=== PATIENT | female | born 1930 | race Hispanic/Latino ===

== ENCOUNTER 2017-07-23 01:10 | Emergency (ER) | payer MEDICARE, OTHER ==
[~2017-07-23] VITALS: Ht 152.4 cm; Wt 70.8 kg
[~2017-07-23 01:10] MED LIST: ASPIRIN EC81 MG PO; ATENOLOL50 MG PO; FUROSEMIDE40 MG PO; IBANDRONATE SO150 MG PO; ISOSORBIDE MONO30 MG PO; LEVAQUIN500 MG PO; METOCLOPRAMIDE10 MG PO; SULFAMETHOXAZO1 EAC1 PO; VASOTEC10 MG PO
[2017-07-23 01:29] LABS: BASOPHILS % 0.3 % (0.0-1.0); EOSINOPHILS # (AUTO) 0.1 (0.0-0.4); EOSINOPHILS % 0.5 % (0.0-6.0); HEMATOCRIT 36.6 % (34.2-44.1); HEMOGLOBIN 11.9 g/dL (12.0-16.0); LYMPHOCYTES # (AUTO) 1.9 (1.0-3.2); LYMPHOCYTES % 14.4 % (18.0-39.1); MEAN CORPUSCULAR HEMOGLOBIN 26.7 pg (28-32); MEAN CORPUSCULAR HGB CONC 32.5 g/dL (31-35); MEAN CORPUSCULAR VOLUME 82.1 fL (81-99); MONOCYTES # (AUTO) 1.3 (0.2-0.8); MONOCYTES % 9.8 % (4.4-11.3); NEUTROPHILS # (AUTO) 9.5 (2.1-6.9); NEUTROPHILS % 74.4 % (38.7-80.0); PLATELET COUNT 270 x10e3/uL (140-360); RED BLOOD COUNT 4.46 x10e6/uL (3.6-5.1); RED CELL DISTRIBUTION WIDTH 14.6 % (11.7-14.4)
[2017-07-23 01:32] LABS: CLARITY,URINE CLEAR (CLEAR); COLOR,URINE YELLOW (YELLOW); LEUKOCYTE ESTERASE ,URINE TRACE (NEGATIVE); NITRITE,URINE NEGATIVE (NEGATIVE)
[2017-07-23 01:33] LABS: BILIRUBIN,URINE NEGATIVE (NEGATIVE); KETONES,URINE NEGATIVE (NEGATIVE); PROTEIN,URINE DIPSTICK 1+ (NEGATIVE); URINE UROBILINOGEN 1 mg/dL (0.2 - 1)
[2017-07-23] MEDS ORDERED: ASPIRIN EC81 MG PO (01:36)
[2017-07-23] MEDS ORDERED: MONTELUKAST SOD10 MG PO (01:36)
[2017-07-23] MEDS ORDERED: EXELON1 EAC1 TD (01:36)
[2017-07-23] MEDS ORDERED: LEVOFLOXACIN250 MG PO (01:36)
[2017-07-23] MEDS ORDERED: IBUPROFEN400 MG PO (01:36)
[2017-07-23] MEDS ORDERED: ALBUTEROL0.63 MG/3 NEB (01:36)
[2017-07-23] MEDS ORDERED: VENTOLIN HFA18 GM INH (01:36)
[2017-07-23] MEDS ORDERED: CITALOPRAM HBR10 MG PO (01:36)
[2017-07-23 01:37] LABS: ALANINE AMINOTRANSFERASE 6 IU/L (0-55); ALBUMIN/GLOBULIN RATIO 0.8 (0.8-2.0); ALKALINE PHOSPHATASE 55 IU/L (40-150); ANION GAP 14.3 mmol/L (8-16); BLOOD UREA NITROGEN 14 mg/dL (7-26); BUN/CREATININE RATIO 20 (6-25); CALCIUM 9.4 mg/dL (8.4-10.2); CARBON DIOXIDE 25 mmol/L (22-29); CHLORIDE 103 mmol/L (98-107); CREATININE, SERUM 0.71 mg/dL (0.57-1.11); EST GLOMERULAR FILTRATION RATE > 60 ML/MIN (60-); GLUCOSE 107 mg/dL (74-118); POTASSIUM 3.3 mmol/L (3.5-5.1); SODIUM 139 mmol/L (136-145)
[2017-07-23 01:40] LABS: BACTERIA,URINE FEW /HPF; EPITHELIAL CELLS,URINE FEW /LPF; RBC,URINE >50 /HPF (0-5)
--- NOTE | 2017-07-23 02:14 | Diagnostic Imaging Report ---
EXAM: CHEST SINGLE (PORTABLE), AP 1 view INDICATION: Altered mental status COMPARISON: AP view of the chest November 05, 2016 FINDINGS: LINES/TUBES: None LUNGS: Progressive volume loss of the right lung. Once again there is scarring and a cavitary lesion in the right apex. Calcified granulomas left lung. PLEURA: No effusions or pneumothorax. HEART AND MEDIASTINUM: Stable appearance. BONES AND SOFT TISSUES: No acute findings. IMPRESSION: Progressive volume loss of the right lung and stable cavitary lesion in the right apex. Finding suggests sequela of prior infection. Signed by: Dr. Claudette Lind M.D. on 07/23/2017 2:10 AM
--- NOTE | 2017-07-23 02:46 | Diagnostic Imaging Report ---
EXAMINATION: Head CT without contrast. HISTORY:Altered mental status. COMPARISON:CT brain from 11/05/2016. TECHNIQUE: Multidetector axial images were obtained from the foramen magnum to the vertex without contrast. The images were reconstructed using brain and bone algorithms. Thin section brain images were reformatted into coronal and sagittal planes. Intravenous contrast: None IMAGE QUALITY: Acceptable. FINDINGS: Skull/scalp: No lytic or blastic. lesions. No surgical changes. Parenchyma: Unchanged old lacunar infarct in right lentiform nucleus and left lentiform nucleus that extends to the genu and anterior limb of left internal capsule. Nonspecific bilateral frontoparietal patchy white matter hypodensity are likely related to small vessel ischemic changes. Unchanged 1.2 x 0.8 cm dystrophic calcification in the anterior aspect of left cerebellar hemisphere, possibly a sequel of prior infection/inflammation or trauma. No surrounding edema. No acute hemorrhage, mass or acute major vascular territorial infarct. Arteries: Atherosclerotic calcification in bilateral carotid siphon. Dural sinuses: No abnormal density suggestive of thrombosis. Ventricles: No hydrocephalus or displacement. Extra-axial spaces: No abnormal density. Brain volume: Normal for age. Craniocervical junction: No mass, Chiari malformation, or basilar invagination. Sella: No mass. Paranasal/mastoid sinuses: Mild mucosal thickening with bubbly secretions in right sphenoid sinus. Opacification of the visualized portion of left maxillary sinus. IMPRESSION: No acute intracranial abnormality. No change since CT head from 11/05/2016. Chronic findings: 1. Mild supratentorial white matter microvascular ischemic changes. 2. Old lacunar infarct in bilateral lentiform nuclei. 3. Generalized age-related cerebral volume loss. 4. Dystrophic calcification in left cerebellar hemisphere possibly a sequel of prior infection/inflammation or trauma. Signed by: Dr. Malini Martinez M.D. on 07/23/2017 2:42 AM
== END 2017-07-23 03:10 | disposition home or self-care (01) ==
LOC: ER 01:10
DX: N30.01 Acute cystitis with hematuria (principal); F03.90 Unspecified dementia, unspecified severity, without behavioral disturbance, psychotic disturbance, mood disturbance, and anxiety; I10 Essential (primary) hypertension; M81.0 Age-related osteoporosis without current pathological fracture; M19.90 Unspecified osteoarthritis, unspecified site; Z82.49 Family history of ischemic heart disease and other diseases of the circulatory system; Z83.3 Family history of diabetes mellitus
CPT/HCPCS: 36415; 70450; 71045; 80053; 81001; 83605; 85025; 87040; 87086; 93005; 99284

== ENCOUNTER 2017-07-27 10:29 | Observation (INO) | payer MEDICARE, OTHER ==
[~2017-07-27] VITALS: Ht 152.4 cm; Wt 60.4 kg
[~2017-07-27 10:29] MED LIST changes: +ALBUTEROL0.63 MG/3 NEB; +CITALOPRAM HBR10 MG PO; +EXELON1 EAC1 TD; +IBUPROFEN400 MG PO; +LEVOFLOXACIN250 MG PO; +MONTELUKAST SOD10 MG PO; +VENTOLIN HFA18 GM INH
[2017-07-27 11:55] LABS: BASOPHILS % 0.3 % (0.0-1.0); EOSINOPHILS # (AUTO) 0.1 (0.0-0.4); EOSINOPHILS % 0.4 % (0.0-6.0); HEMATOCRIT 39.5 % (34.2-44.1); HEMOGLOBIN 12.8 g/dL (12.0-16.0); LYMPHOCYTES # (AUTO) 1.4 (1.0-3.2); LYMPHOCYTES % 12.5 % (18.0-39.1); MEAN CORPUSCULAR HEMOGLOBIN 26.9 pg (28-32); MEAN CORPUSCULAR HGB CONC 32.4 g/dL (31-35); MEAN CORPUSCULAR VOLUME 83.2 fL (81-99); MONOCYTES # (AUTO) 1.1 (0.2-0.8); MONOCYTES % 9.5 % (4.4-11.3); NEUTROPHILS # (AUTO) 8.6 (2.1-6.9); PLATELET COUNT 366 x10e3/uL (140-360); RED BLOOD COUNT 4.75 x10e6/uL (3.6-5.1); RED CELL DISTRIBUTION WIDTH 14.7 % (11.7-14.4)
[2017-07-27 12:07] LABS: ALANINE AMINOTRANSFERASE 8 IU/L (0-55); ALBUMIN 3.3 g/dL (3.5-5.0); ALBUMIN/GLOBULIN RATIO 0.8 (0.8-2.0); ALKALINE PHOSPHATASE 63 IU/L (40-150); ANION GAP 14.2 mmol/L (8-16); BLOOD UREA NITROGEN 14 mg/dL (7-26); BUN/CREATININE RATIO 19 (6-25); CALCIUM 10.2 mg/dL (8.4-10.2); CARBON DIOXIDE 29 mmol/L (22-29); CHLORIDE 104 mmol/L (98-107); CREATINE KINASE 28 IU/L (29-168); CREATININE, SERUM 0.75 mg/dL (0.57-1.11); EST GLOMERULAR FILTRATION RATE > 60 ML/MIN (60-); GLUCOSE 127 mg/dL (74-118); POTASSIUM 3.2 mmol/L (3.5-5.1); SODIUM 144 mmol/L (136-145)
--- NOTE | 2017-07-27 12:15 | Diagnostic Imaging Report ---
PROCEDURE: Frontal and lateral views of the chest. COMPARISON: Chest radiograph 07/23/2017, chest CT 11/06/2016 INDICATIONS: COUGH FINDINGS: LUNGS: Stable appearance of the right lung from 07/23/2017 when allowing for differences in technique. Chronic scarring and cavitation in the right lung apex. Calcified granulomas are noted in the left lung. PLEURA: Pleural scarring. No effusions or pneumothorax. HEART AND MEDIASTINUM: Stable appearance. BONES AND SOFT TISSUES: No acute findings. IMPRESSION: 1. Stable exam from 07/23/2017 when allowing for differences in radiographic technique. 2. Chronic scarring and cavitation in the right lung apex, most likely sequela of tuberculosis. 1. Dictated by: Jordan Beck M.D. on 07/27/2017 at 12:18 Electronically approved by: Jordan Beck M.D. on 07/27/2017 at 12:18
[2017-07-27 13:15] LABS: CLARITY,URINE SL CLOUDY (CLEAR); COLOR,URINE YELLOW (YELLOW)
[2017-07-27 13:16] LABS: BILIRUBIN,URINE NEGATIVE (NEGATIVE); KETONES,URINE NEGATIVE (NEGATIVE); LEUKOCYTE ESTERASE ,URINE NEGATIVE (NEGATIVE); NITRITE,URINE NEGATIVE (NEGATIVE); PROTEIN,URINE DIPSTICK NEGATIVE (NEGATIVE); URINE UROBILINOGEN 0.2 mg/dL (0.2 - 1)
[2017-07-27 13:25] LABS: BACTERIA,URINE FEW /HPF; EPITHELIAL CELLS,URINE FEW /LPF; RBC,URINE >50 /HPF (0-5)
[2017-07-27] MEDS: SODIUM CHLORIDE 0.9% 1000ML 1,000 ML IV SCH (14:49)
[2017-07-27] MEDS: CEFTRIAXONE SOD 1 GM VIAL IV SCH (14:49)
[2017-07-27] MEDS ORDERED: CEFDINIR PO (14:51)
[2017-07-27] MEDS: HYDRALAZINE HCL 20 MG/ML VIAL IV PRN ×3 (15:03→23:23)
[2017-07-27 16:42] VITALS: BP 191/69
[2017-07-27] MEDS ORDERED: POTASSIUM CHLORIDE 10 MEQ TABCR PO SCH (18:14)
[2017-07-27 19:45] VITALS: BP 191/69
[2017-07-27 19:47] VITALS: BP 191/69
[2017-07-27 20:00] VITALS: BP 174/72
[2017-07-27] MEDS ORDERED: ALBUTEROL/IPRATROPIUM 3 ML NEB NEB SCH (22:00)
[2017-07-27] MEDS ORDERED: LORAZEPAM INJ 2 MG/ML VIAL IV ONE (22:15)
[2017-07-28 00:30] VITALS: BP 194/89
--- NOTE | 2017-07-28 01:04 | Diagnostic Imaging Report ---
EXAM: CT CHEST W DATE: 07/27/2017 5:55 PM INDICATION: Abnormal xray, reported active TB COMPARISON: 11/06/2016 TECHNIQUE: Multidetector CT scanning of the chest was performed. Coronal and sagittal multiplanar reformations were obtained. IV Contrast: 100 ml Isovue 370/300 FINDINGS: LUNGS AND PLEURA: There is again right upper lobe cavitation/cystic change with underlying scarring. Cystic bronchiectasis is seen most notably in the right middle and lower lobes with air-fluid levels which have increased from prior. Diffuse areas of bronchial thickening, mucous plugging, and scattered tree-in-bud nodules are again noted in similar distribution. Several larger nodules are are present, one of which measuring 1.8 cm in the left upper lobe is new. Trace right pleural thickening/fluid. HEART, MEDIASTINUM, VESSELS: Mild cardiomegaly without pericardial effusion. Coronary artery and aortic atherosclerotic disease main pulmonary artery measures 2.9 cm, upper limits of normal. Stable reactive right hilar and mediastinal nodes, at least one of which in the right subcarinal region (2 cm on image 60) demonstrates central low-attenuation which could reflect internal necrosis. UPPER ABDOMEN: 4.2 cm left renal cyst. Prior cholecystectomy.. MUSCULOSKELETAL: Multilevel degenerative changes. Healed fracture. 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 Interval increase in air-fluid levels within cystic bronchiectasis in the right lung from prior. Signed by: Dr Petra Solano MD on 07/28/2017 1:00 AM
[2017-07-28] MEDS: CEFTRIAXONE SOD 1 GM VIAL IV SCH ×2 (02:29→14:31)
[2017-07-28] MEDS ORDERED: SODIUM CHLORIDE 0.9% 50ML 50 ML ONE (03:21)
[2017-07-28] MEDS ORDERED: IOPAMIDOL 370 MG/ML 200 ML INFUS..BTL INJ ONE (03:22)
[2017-07-28] MEDS: SODIUM CHLORIDE 0.9% 1000ML 1,000 ML IV SCH (03:30)
[2017-07-28 05:29] VITALS: BP 151/99
[2017-07-28] MEDS ORDERED: AZITHROMYCIN 500MG/NS 250 ML 250 ML IV SCH (07:00)
[2017-07-28] MEDS ORDERED: ALBUTEROL/IPRATROPIUM 3 ML NEB NEB PRN (07:30)
[2017-07-28 07:49] VITALS: BP 188/83
[2017-07-28] MEDS: FAMOTIDINE 20 MG TAB PO SCH ×2 (08:07→17:21)
[2017-07-28 08:14] LABS: CHOL/HDL RATIO 3.4 (3.0-3.6)
[2017-07-28 08:37] LABS: THYROID STIMULATING HORMONE 0.89 uIU/mL (0.350-4.940)
[2017-07-28] MEDS ORDERED: POTASSIUM CHLORIDE 10 MEQ TABCR PO SCH (09:00)
[2017-07-28] MEDS ORDERED: CITALOPRAM HYDROBROMIDE 20 MG TAB PO SCH ×2 (09:00)
[2017-07-28] MEDS ORDERED: ASPIRIN 81 MG ENTERIC COATED PO SCH (09:00)
[2017-07-28] MEDS ORDERED: NON-FORMULARY MEDICATION (Citalopram Hydrobromide (Citalopram Hbr) 10 MG) PO SCH (09:00)
[2017-07-28] MEDS ORDERED: ATENOLOL 50 MG TAB PO SCH (09:00)
[2017-07-28] MEDS ORDERED: ENALAPRIL MALEATE 10 MG TAB PO SCH (09:00)
[2017-07-28] MEDS ORDERED: RIVASTIGMINE TRANSDERMAL 9.5MG/24HOURS PATCH TD SCH (09:00)
[2017-07-28] MEDS ORDERED: METHYLPREDNISOLONE SOD SUCC 40 MG/ML VIAL IV SCH (09:00)
[2017-07-28] MEDS: BENZONATATE 100 MG CAP PO SCH ×2 (09:31→14:31)
[2017-07-28 11:52] VITALS: BP 154/84
--- NOTE | 2017-07-28 11:52 | History and Physical ---
PRIMARY CARE PHYSICIAN: Dr. Jalloh CHIEF COMPLAINT: Shortness of breath, confusion and urinary tract infection. HISTORY OF PRESENT ILLNESS: An 87-year-old woman, all history obtained by her daughter, phone number [phone]. The patient has been hallucinating. Has been short of breath, coughing and having difficulty with breathing. Went to see her doctor and started on antibiotics. Brought to the emergency room and switched to Ceftin. The patient is seeing things with hallucinations like cats. She continues to be short of breath and feels weak. She has been coughing for 2 weeks. She is brought to the hospital for further evaluation and management. The patient has had cavity lung lesions in the past. PAST MEDICAL HISTORY: Right cavitary lung lesion, acute kidney injury, left cerebellar abnormality, which is chronic, chronic heart failure, type unknown. Enterococcus faecalis urinary tract infection, stroke, hypertension, asthma, osteoporosis, dementia, ambulatory dysfunction with use of a cane, visual hallucinations. PAST SURGICAL HISTORY: Cholecystectomy, appendectomy, bladder lift. ALLERGIES: PER ELECTRONIC MEDICAL RECORDS. FAMILY HISTORY/SOCIAL HISTORY: Patient lives with her son. Daughter is also involved in her care. The patient is . She has 9 children. No alcohol, illicits or cigarettes. MEDICATIONS: Per electronic medical record. REVIEW OF SYSTEMS: Unobtainable. PHYSICAL EXAMINATION VITAL SIGNS: Reviewed. GENERAL: A tired-appearing woman resting in bed. HEENT: Atraumatic. CARDIOVASCULAR: Normal S1 and S2. LUNGS: She has coarse breath sounds. She has scattered wheezing. She has rhonchi throughout the lungs. Reduced breath sounds. ABDOMEN: Soft, nontender and nondistended. EXTREMITIES: No edema. SKIN: Dry. PSYCHIATRIC: Flat affect. NEUROLOGIC: Awake. Vocalizes but confused. LABS: Reviewed. MEDICATIONS: Reviewed. ASSESSMENT: This is an 87-year-old woman with: 1. Right lung cavitary lesion. 2. Urinary tract infection. 3. Hypertensive encephalopathy. 4. Acute metabolic encephalopathy. 5. Dementia with acute psychosis. 6. Hypokalemia. 7. Right-sided bronchiectasis. 8. Acute asthma exacerbation. 9. Physical deconditioning. 10. Overweight state. 11. Hyperglycemia. PLAN 1. Will start nebs. 2. Will add Solu-Medrol and azithromycin for atypical coverage. Will continue with ceftriaxone. 3. Infectious disease consultation. 4. Rule out active tuberculosis. Will defer to infectious disease. 5. Physical therapy consultation. 6. Control blood pressure. Titrate medications. 7. Visual hallucinations. 8. Treat infection. Should improve hallucinations. 9. Follow up urine culture. 10. Replace potassium. 11. Physical therapy consultation. 12. Prophylaxis. Lovenox and Pepcid. 13. Disposition. Follow up lab results. Job#: [id number] [id number]
[2017-07-28] MEDS ORDERED: GUAIFENESIN 600MG/DEXTROMETHORPHAN 30MG TABSR PO SCH (14:00)
--- NOTE | 2017-07-28 14:23 | Consultation ---
DATE OF CONSULTATION: July 28, 2017 REASON FOR CONSULTATION: Evaluate and assist in treatment of the patient with a history of cavitary lung lesion and suspected pneumonia. Information is gathered from the current medical record. The patient is very lethargic currently. I attempted to reach the daughter at telephone number [phone]. She is not answering. Note from the chart indicates that the patient is an 87-year-old woman with a history of cavitary lung lesion, who was brought to the hospital for evaluation because of increasing shortness of breath, cough and difficulty breathing. There is no report of fevers. It is reported that the patient developed the above symptoms and went to see her doctor, who started some antibiotics. Because of the persistence of her symptoms, she was brought to the emergency room where her antibiotic treatment was reportedly changed to Ceftin. Her symptoms persisted for the past 2 weeks. She has therefore been admitted for further evaluation and treatment. Imaging is reported with cavitary lung lesions, which has been shown apparently on previous imaging studies. She has been started on Solu-Medrol, as well as ceftriaxone and azithromycin. The nursing staff reports that the patient has been coughing up a brownish sputum. ID consult is called to evaluate and assist with further management. It is not clear whether the patient has ever been diagnosed with or treated for tuberculosis in the past. It is not clear whether any other workup has been done for her cavitary lung lesion. PAST MEDICAL HISTORY: Significant for the above right cavitary lung lesion, acute kidney injury, left cerebellar abnormality, chronic kidney disease, previous urinary tract infection with enterococcus, CVA, hypertension, asthma, osteoporosis, and dementia. She has had an appendectomy and cholecystectomy in the past. She has had bladder lift surgery. SOCIAL HISTORY: No report of recent tobacco, alcohol or other forms of recreational drug use. FAMILY HISTORY: Noncontributory to her current hospitalization. ALLERGIES: SHE IS REPORTED ALLERGIC TO MEPERIDINE. As reported earlier, she is on steroids, as well as azithromycin and ceftriaxone. The rest of her medications are per the medication administration report. REVIEW OF SYSTEMS: The patient is arousable. She mumbles. She coughs occasionally. No dyspnea at rest. No report of nausea, vomiting or diarrhea. No genitourinary complaints. No pruritus or rash. PHYSICAL EXAMINATION GENERAL: She is an elderly woman. She appears frail. She is currently in no acute distress and appears nontoxic. VITALS: Maximum temperature recorded since presentation is 98.3 degrees Fahrenheit. She is hemodynamically stable without vasopressors. HEENT: She has no gross pallor. No obvious icterus. No oropharyngeal lesions. NECK: Supple. CHEST: Symmetric. Breath sounds are coarse in the lung rodriguez. HEART: Sounds are regular without significant murmur. ABDOMEN: Soft and nontender. Bowel sounds are present. EXTREMITIES: There is no acute erythema of her extremities. Her white count at presentation on July 27, 2017, was 11.2, hemoglobin 12.8 and platelet count 366,000. Differential on the white count appear unremarkable. Her serum creatinine is 0.7. Liver function tests unremarkable. Sputum culture has been ordered. Urine culture has been ordered. No blood culture report is available. A chest CT from July 27, 2017, reports persistent findings of her right upper lobe cavitary/cystic change with underlying scarring. There is cystic bronchiectasis in the right middle and lower lobes with air-fluid levels, which have increased from a prior study. There is diffuse areas of bronchial thickening, mucus plugging and scattered 3 involved nodules. There are several larger nodules present. There is trace right pleural thickening/fluid. IMPRESSION: This 87-year-old woman with cystic bronchiectasis with persistent right upper lobe cavitary lesion. The etiology is unclear. Whether this is part of the pathology of her cystic bronchiectasis or an infectious process, such as tuberculosis is unclear. Family is not available to determine if the patient has ever been evaluated for, diagnosed with or treated for tuberculosis. I suggest to maintain her in AFB isolation. We have ordered QuantiFeron tests for further evaluation. If feasible, she should be considered for bronchoscopy to send sputum for AFB smears and cultures. I would not start her on anti-TB therapy for now. Monitor clinical response to treatment with ceftriaxone and azithromycin for superimposed pneumonia. Follow up on her cultures and continue supportive care. I have discussed the findings and treatment with the nursing staff. I have discussed the patient with the primary physician, who I thank for the consult, and opportunity to participate in the patient's care. Job#: [id number]
[2017-07-28 15:56] VITALS: BP 142/69
[2017-07-28] MEDS ORDERED: ENOXAPARIN SOD INJ 40 MG/0.4 ML SYR SC SCH (17:00)
[2017-07-28] MEDS ORDERED: MONTELUKAST SODIUM 10 MG TAB PO SCH (21:00)
--- NOTE | 2017-07-29 07:57 | Discharge Summary ---
PRINCIPAL DIAGNOSES 1. Right lung cavitary lesion. 2. Urinary tract infection. 3. Hypertensive encephalopathy. 4. Acute metabolic encephalopathy. 5. Dementia with acute psychosis. 6. Hypokalemia. 7. Right-sided bronchiectasis. 8. Acute asthma exacerbation. 9. Physical deconditioning. 10. Overweight state. 11. Hyperglycemia. SECONDARY DIAGNOSIS: Hypertension. CHIEF COMPLAINT: Shortness of breath, confusion and urinary tract infection. HISTORY OF PRESENT ILLNESS: An 87-year-old woman with shortness of breath, confusion and urinary tract infection. Please refer to the H and P for further details. HOSPITAL COURSE: The patient was found to have right lung cavitary lesion, which is old. Unclear as to whether it is or not. Infectious disease was consulted for urinary tract infection. Started on antibiotics. Hypertensive encephalopathy treated with medication regimen. Acute metabolic encephalopathy and dementia with acute psychosis. Hypokalemia was replaced and rechecked. She had right-sided bronchiectasis and asthma exacerbation and physical deconditioning. The patient had overweight state. The patient was transitioned to [facility] for further care and further workup. DISCHARGE MEDICATIONS: Per electronic medical records. FOLLOWUP: Primary care physician in 1 week after discharge from the facility. Follow up with the medical team at the facility. JESSICA CASTELLANO MD Job#: [id number] [place]
== END 2017-07-28 19:14 ==
LOC: ER 10:29 → ERHOLD 14:22 → IMCU 16:30 → MED/SURG2 22:18
PROVIDERS: ADMIT Internal Medicine; ATTEND Internal Medicine
DX: J98.4 Other disorders of lung (principal); R41.82 Altered mental status, unspecified; N30.90 Cystitis, unspecified without hematuria; I10 Essential (primary) hypertension; I67.4 Hypertensive encephalopathy; G93.41 Metabolic encephalopathy; F03.91 Unspecified dementia, unspecified severity, with behavioral disturbance; F05 Delirium due to known physiological condition; E87.6 Hypokalemia; E66.3 Overweight; R73.9 Hyperglycemia, unspecified; Z86.73 Personal history of transient ischemic attack (TIA), and cerebral infarction without residual deficits; Z87.440 Personal history of urinary (tract) infections; J45.901 Unspecified asthma with (acute) exacerbation
CPT/HCPCS: 36415 ×2; 71046; 71260; 80053; 80061; 81001; 82550; 82553; 83036; 84132; 84443; 84484; 85025; 87070; 87086; 87116; 87205; 87206; 93005; 94640; 99284; G0378 ×2; J0360; J0456; J0696 ×2; J1650; J2060; J2920; J7030 ×2; Q9967